=== PATIENT | female | born 1940 | race Caucasian/White ===

== ENCOUNTER 2018-07-10 14:42 | Inpatient (IN) | payer OTHER ==
[~2018-07-10] VITALS: Ht 154.9 cm; Wt 53.8 kg
[~2018-07-10 14:42] MED LIST: BENICAR HCT 401 EACH PO; HYDROCHLOROTHIA25 M2 PO; LOW DOSE ASPIRI81 M1 PO; PRILOSEC 20 MG20 MG PO; VENTOLIN HFA INH8 GM
[2018-07-10 14:45] VITALS: BP 195/80
[2018-07-10 15:04] LABS: ABSOLUTE BASOPHILS 0.1 thou/uL (0.0-0.2); ABSOLUTE EOSINOPHILS 0.1 thou/uL (0.0-0.7); ABSOLUTE LYMPHOCYTES 2.6 thou/uL (0.8-5.3); ABSOLUTE MONOCYTES 0.5 thou/uL (0.0-1.2); BASOPHILS 0.6 %; EOSINOPHILS 1.8 %; HEMATOCRIT 41.6 % (37.0-47.0); HEMOGLOBIN 14.3 gm/dL (12.0-15.0); MCH 29.8 pg (26.0-34.0); MCHC 34.3 g/dL (28.0-37.0); MCV 86.9 fL (80.0-100.0); MONOCYTES 6.3 %; NUCLEATED RBCS 0 /100WBC; PLATELET COUNT* 272 thou/uL (150-400); POLYS 60.3 %; RBC 4.79 mil/uL (4.20-5.00); RDW-CV 13.1 % (10.5-14.5); WBC 8.2 thou/uL (4.0-11.0)
[2018-07-10 15:13] LABS: ANION GAP 10 mmol/L (7-16); BUN 17 mg/dL (7-18); CALCIUM 9.4 mg/dL (8.5-10.1); CHLORIDE 94 mmol/L (98-107); CO2 29 mmol/L (21-32); CREATININE 0.7 mg/dL (0.6-1.3); GLUCOSE 140 mg/dL (70-99); SODIUM 133 mmol/L (136-145)
[2018-07-10 15:15] LABS: POTASSIUM 2.8 mmol/L (3.5-5.1)
[2018-07-10 15:26] LABS: ALBUMIN 3.8 g/dL (3.4-5.0); ALKALINE PHOSPHATASE 89 U/L (46-116); LIPASE 121 U/L (73-393); NT-PRO BRAIN NAT PEPTIDE 138 pg/mL (<300); SGOT 15 U/L (15-37); SGPT 28 U/L (30-65); TOTAL BILIRUBIN 0.6 mg/dL (<0.1-1.0); TOTAL PROTEIN 6.8 g/dL (6.4-8.2); TROPONIN-I LEVEL <0.06 ng/mL (<0.06)
[2018-07-10 15:32] LABS: URINE BILIRUBIN NEGATIVE (Negative); URINE BLOOD NEGATIVE (Negative); URINE CLARITY CLEAR; URINE COLOR YELLOW; URINE GLUCOSE-RANDOM NEGATIVE (Negative); URINE KETONES 1+ (Negative); URINE LEUKOCYTES-REFLEX NEGATIVE (Negative); URINE NITRITE-REFLEX NEGATIVE (Negative); URINE PROTEIN NEGATIVE (Negative); URINE UROBILINOGEN 0.2 E.U./dl (0.2-1.0)
--- NOTE | 2018-07-10 17:18 | NUR ---
BLANCO NOTIFIED UPON PT RETURN FROM CT. PT CONNECTED TO MONITOR
[2018-07-10 17:40] VITALS: BP 129/61
[2018-07-10 18:00] VITALS: BP 134/64
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
[2018-07-10 20:00] VITALS: BP 126/56
[2018-07-11] VITALS (17 sets, daily range): BP systolic 95–172; BP diastolic 41–86
[2018-07-11 01:51] LABS: MCH 30.3 pg (26.0-34.0); MCHC 34.4 g/dL (28.0-37.0); MCV 88.2 fL (80.0-100.0); MPV 8.6 fl. (7.2-11.1); RBC 3.97 mil/uL (4.20-5.00); RDW-CV 12.9 % (10.5-14.5)
--- NOTE | 2018-07-11 01:55 | NUR ---
PT ALERT ORIENTED. ONE EPISOID OF EMESIS AT SHIFT CHG. ZOFRAN GIVEN. SCOPOLAMINE PATCH APPLIED. HEAD ACHE PAIN 5/10. MORPHINE 2 MG GIVEN. NAUSIA GONE. PAIN DECREASED /10. PT IN DARK QUIET ROOM. POTASSIUM 2.8. POTASSIUM PROTOCAL STARTED. IV GIVEN BC PT HAS BEEN NAUSIATED. TROPONIN 0.[address] ROJO AND DR RICHTER NOTIFIED. ORDER FROM DR RICHTER NOT TO CALL UNLESS >3.0. PT RESTING QUIETLY. DTR SPENDING THE NIGHT IN ROOM. TELEMETRY SHOWS SR. UP WITH ASSIST OF ONE TO BR. WILL CONTINUE TO MONITOR.
[2018-07-11 02:20] LABS: ALBUMIN 2.9 g/dL (3.4-5.0); CALCIUM 7.9 mg/dL (8.5-10.1); CREATININE 0.6 mg/dL (0.6-1.3); POTASSIUM 4.5 mmol/L (3.5-5.1); TOTAL BILIRUBIN 0.6 mg/dL (<0.1-1.0); TOTAL PROTEIN 5.2 g/dL (6.4-8.2)
--- NOTE | 2018-07-11 02:32 | NUR ---
AM LABS DRAWN AT 0120. POTASSIUM 4.5. POTASSIUM INFUSIONS DISCONTINUED. 50MEQ OF POTTASSIUM GIVEN. TROPONIN .2129 TROPON[address] RICHTER. ORDER TO CALL TROPONINS >3.0. PT NPO AT DC.
--- NOTE | 2018-07-11 08:00 | NUR ---
ASSUMED CARE OF PT AT 0730. PT RESTING IN BED. DAUGHTER AT BEDSIDE. PT A&0X4, DENIES ANY PAIN OR SHORTNESS OF BREATH AT THIS TIME. PT STATES SHE HAS SOME NAUSEA BUT SCOPOLAMINE PATCH HAS HELPED A LOT. PT NPO FOR CARDIOLOGY CONSULT. TROPONINS ELEVATED- LAST ONE AT 1.05. JOSÉ ACOSTA, CARDIOLOGY LANDSCAPING SPECIALIST NOTIFIED. NO NEW ORDERS RECEIVED. PT TRACING SR ON THE WHARF BUILDER. ON RA SAT UPPER 90'S. DENIES ANY SHORTNESS OF BREATH. PT UP WITH 1 ASSIST. IVF. PT GOAL FOR TODAY IS CARDIOLOGY CONSULT, REMAIN FREE FROM CHEST PAIN AND MONITOR TROPONINS. AM ASSESSMENT CHARTED. MEDICATIONS PER SEP. PT REPOSITIONS SELF. HOURLY ROUNDING OBSERVED. BED IN LOW POSITION. CALL LIGHT WITHIN REACH. WILL CONTINUE PLAN OF CARE.
[2018-07-11 08:47] LABS: URINE BILIRUBIN NEGATIVE (Negative); URINE BLOOD NEGATIVE (Negative); URINE CLARITY CLEAR; URINE COLOR YELLOW; URINE GLUCOSE-RANDOM NEGATIVE (Negative); URINE KETONES 1+ (Negative); URINE LEUKOCYTES NEGATIVE (Negative); URINE NITRITE NEGATIVE (Negative); URINE PROTEIN NEGATIVE (Negative); URINE UROBILINOGEN 0.2 E.U./dl (0.2-1.0)
--- NOTE | 2018-07-11 09:46 | EKG ---
[place] [address] ELECTROCARDIOGRAM REPORT Name: BOBBYSHAKIR Room: [address] ADM IN [facility].#: [id number] Admission: 07/10/18 Attend Phys: Natalie Garcia MD Discharge: Date of : 38 Report #: [id number] THIS REPORT FOR: //name// [place] [facility] Test Date: 2018-07-10 Test Time: 15:23:44 Pat Name: SHAKIR BOBBY Department: Room: [facility] Gender: F Sole Assessor: Gene PIKE : 1940 Requested By: Shelley Hinton Order Number: [id number] MD: Ashvin Palma Measurements Intervals [place] Rate: 75 P: -40 VT: 138 QRS: 40 QRSD: 146 T: -9 QT: 444 QTc: 496 Interpretive Statements Sinus rhythm Right bundle branch block No previous ECG available for comparison Electronically Signed On 07-11-2018 9:46:40 POT FILLER by Ashvin Palma [email or web address] <ELECTRONICALLY SIGNED> By: Ashvin Palma MD, [facility] 07/11/18 0946 1523 152 Ashvin Palma MD, [facility] /EPI
--- NOTE | 2018-07-11 09:48 | EKG ---
[place] [address] ELECTROCARDIOGRAM REPORT Name: DIAMANTESHAKIR Room: [address] ADM IN .R.#: [id number] Admission: 07/10/18 Attend Phys: Natalie Garcia MD Discharge: Date of : 38 Report #: [id number] THIS REPORT FOR: //name// [facility] ED Test Date: 2018-07-10 Test Time: 16:21:51 Pat Name: SHAKIR BOBBY Department: Room: [address] Gender: F Pipe Fitter Maintenance: Gene PIKE : 1940 Requested By: Shelley Hinton Order Number: [id number] Kwabena MD: Ashvin Palma Measurements Intervals [place] Rate: 103 P: 0 MT: 288 QRS: 13 QRSD: 140 T: -47 QT: 389 QTc: 509 Interpretive Statements Sinus tachycardia Consider left atrial enlargement Right bundle branch block Abnormal T, consider ischemia, lateral leads Baseline wander in lead(s) V5 Electronically Signed On 07-11-2018 9:48:05 MOVIE STAR by Ashvin Palma [email or web address] <ELECTRONICALLY SIGNED> By: Ashvin Palma MD, [facility] 07/11/18 0948 1621 1621 Ashvin Palma MD, [facility] /EPI
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
--- NOTE | 2018-07-11 18:16 | NUR ---
PT HAD HEART CATH- ACCESS INTO RIGHT GROIN- NO INTERVENTION COMPLETED. PLAN IS FOR MEDICAL MGMT PER CARDIOLOGY. POST CARDIAC CATH ASSESSMENT AND VITALS COMPLETED. REFER TO CHARTING. PT COMPLAINED OF MIGRAINE. DR ROJO NOTIFIED. ORDERS RECEIVED FOR EXCEDRINE PER PT REQUEST. GIVEN WITH MINIMAL RELIEF. ORDERS ALSO RECEIVED FOR ONE TIME DOSE OF MAGNESIUM IV. REFER TO EMAR. PT COMPLAINED OF NAUSEA. TREATED WITH PRN ZOFRAN. MEDICATIONS PER SEP. PT REPOSITIONS SELF. HOURLY ROUNDING OBSERVED. BED IN LOW POSITION. CALL LIGHT WITHIN REACH. WILL CONTINUE PLAN OF CARE.
--- NOTE | 2018-07-11 18:23 | CARD ---
[address] [address] CARDIAC CATH REPORT Name: SHAKIR BOBBY Room: [address] IN [facility]#: [id number] Admission: 07/10/18 Attend Phys: Natalie Garcia MD Discharge: Date of : 38 Report #: [id number] THIS REPORT FOR: //name// APPROVED REPORT Study performed: 07/11/2018 13:58:49 Patient Details Patient Status: In-Patient Room #: 230 The patient is a 77 year-old female Event Personnel Cecily Aguilera RN Mechanical Test Engineer, Ashvin Palma Case Finisher, Silvia Shelton Monitor, Faye Sorenson RTR Scrub Procedures Performed Art Access - R femoral artery* Left Heart Cath w/or w/o Coronaries [id number] [facility] Supravalvular Aortography Injection [id number] ISVA Indication Abnormal ECG, Non-STEMI , Murmur Risk Factors Arterial Hypertension Procedure Narrative The patient was brought electively to the Cardiac Catheterization Laboratory and was prepped and draped in a sterile manner. The right femoral was infiltrated with 2% Lidocaine subcutaneous anesthesia. A 6fr Ultimum Sheath sheath was inserted into the right femoral artery. Coronary angiography was performed using coronary diagnostic catheters. The right coronary system was accessed and visualized with a 6fr JR 4 catheter. The left coronary system was accessed and visualized with a 6fr JL 4 catheter. The left ventricle was accessed and visualized with a 6fr Pigtail catheter. Left ventricular/Aortic Valve gradient assessed via catheter pullback. Left ventriculogram was performed in STALEY projection. An aortogram of the ascending aorta was performed. Pre-demployment femoral angiogram was performed . Closure device was deployed with a 6 Fr MynxGrip 6/7F. The patient tolerated the procedure well and there were no complications associated with the procedure. There was no hematoma. Aortic valve was crossed with a JR4 using a glide exchange wire. A pigtail catheter was inserted over an exchange wire. Aortic root injection was performed with [place] [address] CARDIAC CATH REPORT Name: SHAKIR BOBBY Room: [address]#: [id number] Admission: 07/10/18 Attend Phys: Natalie Garcia MD Discharge: Date of : 38 Report #: [id number] Intraoperative Conscious Sedation Sedation start time: 14:51 Case end Time: 15:20 No Sedation Given Fluoro Time: 2.8 minutes Dose: DAP 31645 cGycm2 351.89 mGy Contrast Type and Amount: Omnipaque 150 ml Coronary Angiography The patient's coronary anatomy is co- dominant. Diagnostic Cath Left Main 0% stenosis LAD 30% proximal stenosis noted Diagonal 1 Small vessel with mid 99% stenosis. Vessel felt to be too small for stenting Circumflex 30% mid stenosis Right Coronary 0% stenosis Left Ventriculography The left ventricle is normal in size with normal contractility. The left ventricular ejection fraction is estimated to be 60-65%. Left ventricular wall motion abnormalities are not present. There is no mitral insufficiency. No aortic insufficiency noted on aortic root injection. Hemodynamics The aortic pressure is 158/55 mmHg with a mean of mmHg. The left ventricular pressure is 176/15 mmHg with a mean of mmHg. The left ventricular end diastolic pressure is 20 mmHg. Pullback from the left ventricle to the aorta revealed a 30 mm gradient across the aortic valve. Conclusion 1. 99% stenosis of a small diagonal branch that was felt to be too small for stenting 2. Mild aortic stenosis 3. normal LV function Recommendations Aggressive Medical Therapy <ELECTRONICALLY SIGNED> By: Ashvin Palma MD, FACC 07/11/181822 22 182lauren Palma MD, FACC /INF
[2018-07-12] VITALS (10 sets, daily range): BP systolic 103–159; BP diastolic 42–66
--- NOTE | 2018-07-12 02:03 | NUR ---
PT ALERT ORIENTED. ON BR UNTIL 2229. THEN OOB. R GROIN DRSG D/I. R GROIN SITE SOFT NO BRUSING OR HEMATOMA. PT HAD INITAL EPISOID OF NAUSIA AT SHIFT CHT THAT RESOLVED WITHIN AN HOUR. TELEMETRY SHOWS SR BBB. IVF INFUSING TO RFA. BARTH PAIN RATED AT 4/10 AT START OF SHIFT WHICH RESOLVED WITHIN THE HOUR. WILL CONTINUE TO MONITOR.
[2018-07-12 05:01] LABS: HEMATOCRIT 37.4 % (37.0-47.0); HEMOGLOBIN 12.6 gm/dL (12.0-15.0); MCH 29.8 pg (26.0-34.0); MCHC 33.6 g/dL (28.0-37.0); MCV 88.6 fL (80.0-100.0); MPV 8.8 fl. (7.2-11.1); RBC 4.22 mil/uL (4.20-5.00); RDW-CV 12.7 % (10.5-14.5); WBC 7.8 thou/uL (4.0-11.0)
[2018-07-12 05:20] LABS: ALBUMIN 3.1 g/dL (3.4-5.0); ALKALINE PHOSPHATASE 76 U/L (46-116); ANION GAP 12 mmol/L (7-16); BUN 17 mg/dL (7-18); CALCIUM 7.8 mg/dL (8.5-10.1); CHLORIDE 98 mmol/L (98-107); CHOLESTEROL 160 mg/dL (<200); CO2 23 mmol/L (21-32); CREATININE 0.7 mg/dL (0.6-1.3); GLUCOSE 92 mg/dL (70-99); HDL CHOLESTEROL 67 mg/dL (>40); LDL CHOLESTEROL 75 mg/dL (<100); MAGNESIUM 2.1 mg/dL (1.8-2.4); POTASSIUM 3.3 mmol/L (3.5-5.1); SGOT 20 U/L (15-37); SGPT 22 U/L (30-65); SODIUM 133 mmol/L (136-145); TC:HDL 2.4 Ratio (Not establshd); TOTAL BILIRUBIN 0.8 mg/dL (<0.1-1.0); TOTAL PROTEIN 5.5 g/dL (6.4-8.2); TRIGLYCERIDE 91 mg/dL (<150); VLDL 18 mg/dL (<40)
[2018-07-12 05:22] LABS: SERUM ASSESSMENT CLEAR; TROPONIN-I LEVEL 0.91 ng/mL (<0.06)
--- NOTE | 2018-07-12 06:28 | NUR ---
AM EPISOID OF NAUSIA WITH SM AMT EMESIS. CO BARTH. MORPHINE AND ZOFRAN GIVEN. PT RESTING QUIETLY.
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
[2018-07-12] MEDS ORDERED: PRINIVIL10 MG PO (13:19)
[2018-07-12] MEDS ORDERED: ASPIR 8181 MG PO (13:19)
[2018-07-12] MEDS ORDERED: ATORVASTATIN CA20 MG PO (13:19)
[2018-07-12] MEDS ORDERED: NITROGLYCERIN0.4 MG SUBLING (13:19)
[2018-07-12] MEDS ORDERED: EXCEDRIN CAPLE1 EACH PO (13:19)
[2018-07-12] MEDS ORDERED: TRANSDERM-SCOP1 EACH TRANSDERM (13:19)
[2018-07-12] MEDS ORDERED: LOPRESSOR25 PO (13:19)
--- NOTE | 2018-07-12 13:53 | NUR ---
CONTINUE TO FOLLOW, MET WITH PT AND DTR/SUSANA. DISCUSSED DANIEL RAMIREZ AND DEMENTIA AND GAVE RESOURCES AND NUMBER FOR HOPE HOUSE TO PT. PT STATES STILL FEELING VERY WEAK AND TIRED, IS INTERESTED IN SNF IF QUALIFIES. DISCUSSED OPTIONS. DTR WANTED ONE IN [place] BUT IT IS NOT IN NETWORK. DISCUSSED FURTHER AND PT WANTS [facility]. CALLED AND FAXED INITIAL REF TO [facility]. PT TO HAVE THERAPY EVALS THIS AFTERNOON, PT UNDERSTANDS THAT INSURANCE WOULD HAVE TO AUTH SNF. IF SHE DOESN'T QUALIFY, WOULD WANT SAME HH HER HAS. WILL FOLLOW
--- NOTE | 2018-07-12 16:35 | EKG ---
[place] [address] ELECTROCARDIOGRAM REPORT Name: SHAKIR BOBBY Room: [address] ADM IN M.R.#: [id number] Admission: 07/10/18 Attend Phys: Natalie Garcia MD Discharge: Date of : 38 Report #: [id number] THIS REPORT FOR: //name// [facility] Test Date: 2018-07-12 Test Time: 04:36:23 Pat Name: SHAKIR BOBBY Department: Room: [address] Gender: F Data Manager: JVON : 1940 Requested By: Ashvin Palma Order Number: [id number] Kwabena MD: Joseph Leiva Measurements Intervals [place] Rate: 63 P: 49 NV: 164 QRS: -1 QRSD: 141 T: 31 QT: 442 QTc: 453 Interpretive Statements Sinus rhythm Right bundle branch block Nonspecific T-wave inversion Baseline wander in lead(s) V6 Compared to ECG 07/10/2018 16:21:51 Sinus tachycardia no longer present T-wave abnormality less pronounced Possible ischemia no longer present Electronically Signed On 07-12-2018 16:34:59 COMPUTER AIDED DRAFTER by Joseph Leiva [email or web address] <ELECTRONICALLY SIGNED> By: Joseph Leiva MD, FACC 07/12/18 1634 0436 0436 Joseph Leiva MD, FAC /EPI
--- NOTE | 2018-07-12 16:57 | NUR ---
HEARD BACK FROM [facility]. THEY CAN ACCEPT PT LONG THEY GET INSURANCE AUTH. [facility] IS AVAILABLE AT [facility] TOMORROW TO CONTACT TO CHECK AUTH [id number]
--- NOTE | 2018-07-12 17:14 | NUR ---
PT HAS RESTED IN HER ROOM WITH DAUGHTER AT BEDSIDE. [facility] HAS BEEN IN TO SEE PT. PT PROBABLE TO GO TO [facility]ED [facility]. K+ NOW WNL. PT TREATED FOR HEADACHE X1 WITH MORPHINE AND WAS EFFECTIVE. EDUCATION GIVEN ON DEMAND. HOURLY ROUNDING COMPLETE.
--- NOTE | 2018-07-12 17:22 | CON ---
[address] [address] CONSULTATION Name: SHAKIR BOBBY Nicole Room: [address] IN .R.#: [id number] Admission: 07/10/18 Attend Phys: Natalie Garcia MD Discharge: Date of : 38 Report #: [id number] THIS REPORT FOR: //name// CC: Kyle No DATE OF SERVICE: 07/11/2018 HISTORY OF PRESENT ILLNESS: The patient is a 77-year-old white female who I was asked to see in the hospital today because of elevated blood pressure. The patient states that she has had chest pain in the past. She apparently had a heart catheterization by Dr. Saenz 5 years ago and was found to have no significant coronary artery disease. She has a previous history of hypertension, but could not tolerate amlodipine. She was on lisinopril last June, her blood pressure apparently was under control and she was taken off lisinopril. Recently, the only medication she has been on is HCTZ. She states recently she has felt fatigued. She does have occasional back pain, but denied any shortness of breath. She took her blood pressure at home yesterday and it was 220/120. An ambulance was called, she was brought here to [place] and admitted. She did notice headache. She felt nausea and vomiting. She denied any palpitation or syncope. PAST MEDICAL HISTORY: She has had previous appendectomy, cataract extraction. No history of diabetes or hyperlipidemia. ALLERGIES: SHE HAS AN ALLERGY TO PENICILLIN. FAMILY HISTORY: Mother had congestive heart failure. SOCIAL HISTORY: She is . She and her live in [place], [place]. No smoking or alcohol abuse. REVIEW OF SYSTEMS: She has had no history of stroke. She had asthma as a child. No history of peptic ulcer disease, liver disease, kidney disease. She denied sweating spells. She denies recurrent headaches. She has had a heart murmur in the past. No chronic skin condition. PHYSICAL EXAMINATION: GENERAL: Revealed an elderly female lying in bed. She appeared in no acute distress. VITAL SIGNS: She had a blood pressure on admission of 195/80, current 130/55, pulse 76, respirations nonlabored. She is afebrile. HEENT: She is anicteric, conjunctiva pink. Mucous membranes moist. NECK: Veins do not appear distended. Right carotid bruit is heard. CHEST: [place] [address] CONSULTATION Name: SHAKIR BOBBY Room: [address]#: [id number] Admission: 07/10/18 Attend Phys: Natalie Garcia MD Discharge: Date of : 38 Report #: [id number] CARDIAC: Regular rate and grade 3 systolic ejection murmur along the left sternal border. ABDOMEN: Soft. EXTREMITIES: Had no edema. Dorsalis pedis pulse 2+ bilaterally. SKIN: Warm, dry. NEUROLOGIC: Nonfocal. LYMPH: No adenopathy. MUSCULOSKELETAL: No joint effusion. LABORATORY DATA: ECG on admission showed a sinus rhythm with a right bundle branch block. Her workup in the Emergency Room, sodium 134, BUN 19. Liver function studies were normal. Albumin 2.9. Troponin elevated at 1.05. Her white blood cell count 9.0, hemoglobin 12.0. X-rays in the Emergency Room, she had portable chest x-ray that showed normal heart size and clear lung banda. CT scan of the head without contrast was unremarkable. IMPRESSION AND RECOMMENDATIONS: 1. Non-ST elevation myocardial infarction. Recommend cardiac catheterization. 2. Hypertension. I would recommend resuming medications. 3. Carotid bruit. Recommend Doppler. 4. Aortic stenosis. Recommend echocardiogram. <ELECTRONICALLY SIGNED> By: Ashvin Palma MD, FACC 07/12/18 1722 1355 [id number] Palma MD, FACC /nt
[2018-07-13 03:59] VITALS: BP 121/56
--- NOTE | 2018-07-13 07:54 | NUR ---
PT IS ABLE TO COMMUNICATE HER NEEDS TO STAFF EFFECTIVELY. SHE HAS DENIED THE NEED FOR PAIN MEDICATION UP TO THIS TIME. POSSIBLE DISCHARGE TO A SNF TODAY.
[2018-07-13 08:00] VITALS: BP 129/60
[2018-07-13 11:50] VITALS: BP 116/59
--- NOTE | 2018-07-13 13:41 | NUR ---
ASSUMED CARE OF PATIENT THIS AM AT 0730. PATIENT IS ALERT AND ORIENTED X 4. SHE DENIES PAIN THIS AM BUT C/O CONSTIPATION. PATIENT HAS BEEN UP TO THE CHAIR AND IS AMBULATING TO THE BATHROOM WITHOUT DIFFICULTY. TELE SHOWS SR WITH A BBB. PLANS TO DISCHARGE TO REHAB FACILITY WHEN ATHORIZATION IS CLEARED. PATIENT MEDICATED FOR CONSTIPATION AND GIVEN PRUNE JUICE. NO RESULTS AT THIS TIME. WILL CONTINUE TO MONITOR. DAUGHTER IS IN AT THE BEDSIDE.
--- NOTE | 2018-07-13 15:53 | NUR ---
Following for d/c planning needs. Spoke with community center coordinator at [facility] and faxed updated clinical information to [facility]. Received telephone call back from [facility] community center coordinator stating she did receive insurance authorization for pt to transfer to their facility. They are not able to accept today, but have made w/c van transportation arrangements for pt at 1100 on 07/14. [facility] [phone] [facility] w/c [place] [phone]
[2018-07-13 16:03] VITALS: BP 109/54
[2018-07-13 20:59] VITALS: BP 111/57
[2018-07-13 23:12] VITALS: BP 106/52
[2018-07-14] VITALS: BP 123/53
[2018-07-14 04:00] VITALS: BP 121/63
--- NOTE | 2018-07-14 07:42 | NUR ---
PT IS ABLE TO COMMUNICATE HER NEEDS TO STAFF EFFECTIVELY. CURRENT PAIN MEDICATION REGIMEN HAS BEEN ADEQUATE FOR CONTROLLING HER PAIN UP TO THIS TIME. POSSIBLE DISCHARGE TO [facility] TODAY PENDING APPROVAL. PT DID HAVE SEVERAL BMs LAST NIGHT AFTER RECEIVING NUMEROUS INTERVENTIONS TO HELP HER GO.
[2018-07-14 08:00] VITALS: BP 168/61
[2018-07-14 11:51] VITALS: BP 159/66
[2018-07-14] MEDS ORDERED: MIRALAX17 GM PO (12:28)
[2018-07-14 12:47] VITALS: BP 159/66
--- NOTE | 2018-07-14 13:48 | NUR ---
ASSUMED CARE OF PATIENT THIS AM AT 0730. PATIENT IS ALERT AND ORIENTED X 4. SHE C/O A HEADACHE THIS AM. PATIENT MEDICATED FOR PAIN X 1 PO. SEE SEP. PATIENT STATED PAIN WAS RELIEVED. DISCHARGE TO [facility] HOME VERIFIED AND PATIENT NOTIFIED. REPORT CALLED TO [facility]. SALINE LOCK AND TELE MONITOR DISCONTINUED. PATIENT DISCHARGED TO CARE HOME PER W/C WITH BELONGINGS.
== END 2018-07-14 13:49 | DRG 280 ==
LOC: M.ERS 14:42 → M.TBA-ER 16:32 → M.ERS 16:32 → M.TBA-ER 17:18 → M.2W 17:18
PROVIDERS: Physician Assistant; ADMIT Internal Medicine
PROC: B3101ZZ Fluoroscopy of Thoracic Aorta using Low Osmolar Contrast (ICD-10-PCS; principal; 2018-07-10)
PROC: 4A023N7 Measurement of Cardiac Sampling and Pressure, Left Heart, Percutaneous Approach (ICD-10-PCS; principal; 2018-07-10)
PROC: B2111ZZ Fluoroscopy of Multiple Coronary Arteries using Low Osmolar Contrast (ICD-10-PCS; principal; 2018-07-10)
PROC: B2151ZZ Fluoroscopy of Left Heart using Low Osmolar Contrast (ICD-10-PCS; principal; 2018-07-10)
DX: I21.4 Non-ST elevation (NSTEMI) myocardial infarction (principal); I50.33 Acute on chronic diastolic (congestive) heart failure; G43.909 Migraine, unspecified, not intractable, without status migrainosus; E78.5 Hyperlipidemia, unspecified; E87.6 Hypokalemia; I11.0 Hypertensive heart disease with heart failure; I25.10 Atherosclerotic heart disease of native coronary artery without angina pectoris; R09.89 Other specified symptoms and signs involving the circulatory and respiratory systems; I35.0 Nonrheumatic aortic (valve) stenosis; Z90.49 Acquired absence of other specified parts of digestive tract; Z79.899 Other long term (current) drug therapy; Z88.0 Allergy status to penicillin; Z98.49 Cataract extraction status, unspecified eye; Z82.49 Family history of ischemic heart disease and other diseases of the circulatory system

== ENCOUNTER 2021-06-13 15:29 | Emergency (ER) | payer OTHER ==
[~2021-06-13] VITALS: Ht 154.9 cm; Wt 56.7 kg
[~2021-06-13 15:29] MED LIST changes: +ASPIR 8181 MG PO; +ATORVASTATIN CA20 MG PO; +EXCEDRIN CAPLE1 EACH PO; +LOPRESSOR25 PO; +MIRALAX17 GM PO; +NITROGLYCERIN0.4 MG SUBLING; +PRINIVIL10 MG PO; +TRANSDERM-SCOP1 EACH TRANSDERM
[2021-06-13] MEDS ORDERED: DILTIAZEM ER120 M2 PO (16:13)
[2021-06-13 16:31] LABS: URINE BILIRUBIN NEGATIVE (Negative); URINE BLOOD NEGATIVE (Negative); URINE CLARITY CLEAR; URINE COLOR YELLOW; URINE GLUCOSE-RANDOM NEGATIVE (Negative); URINE KETONES NEGATIVE (Negative); URINE LEUKOCYTES-REFLEX TRACE (Negative); URINE NITRITE-REFLEX NEGATIVE (Negative); URINE PROTEIN NEGATIVE (Negative); URINE SPECIFIC GRAVITY 1.015 (1.005-1.030); URINE UROBILINOGEN 0.2 E.U./dl (0.2-1.0)
[2021-06-13 16:41] LABS: CRYSTALS None Seen /LPF (None Seen); MUCUS None Seen strn/LPF (None Seen); SQUAMOUS 4-10 Moderate /LPF (0-3)
[2021-06-13 16:42] LABS: BACTERIA-REFLEX None Seen /HPF (None Seen); CASTS None Seen /LPF (None Seen); URINE RBC None Seen /HPF (0-2); URINE WBC-REFLEX 0-5 Rare /HPF (0-5)
[2021-06-13 16:55] LABS: ABSOLUTE BASOPHILS 0.1 thou/uL (0.0-0.2); ABSOLUTE EOSINOPHILS 0.3 thou/uL (0.0-0.7); ABSOLUTE LYMPHOCYTES 2.2 thou/uL (0.8-5.3); ABSOLUTE MONOCYTES 0.7 thou/uL (0.0-1.2); ABSOLUTE NEUTROPHILS 4.5 thou/uL (1.6-8.1); BASOPHILS 1.5 %; EOSINOPHILS 3.5 %; HEMATOCRIT 36.3 % (37.0-47.0); HEMOGLOBIN 12.2 gm/dL (12.0-15.0); LYMPHOCYTES 28.5 %; MCH 30.4 pg (26.0-34.0); MCHC 33.6 g/dL (28.0-37.0); MCV 90.6 fL (80.0-100.0); MONOCYTES 8.8 %; MPV 8.2 fl. (7.2-11.1); NUCLEATED RBCS 0 /100WBC; PLATELET COUNT* 253 thou/uL (150-400); POLYS 57.7 %; RBC 4.01 mil/uL (4.20-5.00); WBC 7.8 thou/uL (4.0-11.0)
[2021-06-13 17:00] LABS: CALCIUM 8.8 mg/dL (8.5-10.1); CREATININE 0.7 mg/dL (0.6-1.3); POTASSIUM 3.5 mmol/L (3.5-5.1)
[2021-06-13 17:11] LABS: ALBUMIN 3.9 g/dL (3.4-5.0); MAGNESIUM 2.3 mg/dL (1.8-2.4); TOTAL BILIRUBIN 0.3 mg/dL (<0.1-1.0); TOTAL PROTEIN 7.3 g/dL (6.4-8.2)
[2021-06-13 17:52] VITALS: BP 168/81
--- NOTE | 2021-06-14 08:53 | EKG ---
[place] [address] ELECTROCARDIOGRAM REPORT Name: DIAMANTESHAKIR Room: [facility]#: [id number] Admission: 06/13/21 Attend Phys: Discharge: 06/13/21 Date of : 36 Date of Service: 06/13/21 1735 Report #: [id number] THIS REPORT FOR: //name// [facility] ED Test Date: 2021-06-13 Test Time: 17:35:27 Pat Name: SHAKIR BOBBY Department: Room: Gender: Fabric Inspector: : 1940 Requested By: Derek Pepper Order Number: [id number] MD: Joseph Leiva Measurements Intervals [place] Rate: 83 P: 57 MS: 170 QRS: -14 QRSD: 141 T: 10 QT: 434 QTc: 510 Interpretive Statements Sinus rhythm Probable left atrial enlargement Right bundle branch block Compared to ECG 07/12/2018 04:36:23 No significant changes Electronically Signed On 06-14-2021 8:52:52 INSPECTOR POISING by Joseph Leiva [email or web address] <ELECTRONICALLY SIGNED> By: Joseph Leiva MD, FACC 06/14/21 0852 1735 1735 Joseph Leiva MD, FACC /EPI
== END 2021-06-13 17:52 | disposition home or self-care (01) ==
LOC: M.ERS 15:29
PROVIDERS: Family Medicine; Nurse Practitioner Family
DX: I10 Essential (primary) hypertension (principal); E78.5 Hyperlipidemia, unspecified; Z79.899 Other long term (current) drug therapy; Z90.49 Acquired absence of other specified parts of digestive tract; Z88.0 Allergy status to penicillin